=== PATIENT | female | born 1985 | race Caucasian/White ===

== ENCOUNTER 2018-01-10 17:25 | Emergency (ER) | payer OTHER | END 2018-01-10 19:22 | disposition left against medical advice (07) | LOC: UCCORT 17:25 | DX: R68.89 Other general symptoms and signs (principal); R05 Cough; Z53.21 Procedure and treatment not carried out due to patient leaving prior to being seen by health care provider ==

== ENCOUNTER 2018-01-12 18:17 | Emergency (ER) | payer SELFPAY ==
[2018-01-12 21:33] VITALS: BP 114/70
--- NOTE | 2018-01-12 21:45 | UC ---
Throat Pain/Nasal Michael HPI - HPI Summary HPI Summary: 32 y/o female presents to the urgent care c/o dry cough, nasal congestion w/ clear nasal discharge, sore throat, DELGADILLO and +PND for the past 5 days. Pt reports pain is 5/10 w/ swallowing. She has been taking Coricidin POand Robitsussin PO to alleviate cough w/ any improvement. Pt denies SOB, chest pain, abdominal pain, N/V/D - History of Current Complaint Chief Complaint: UCRespiratory Stated Complaint: COUGH Time Seen by Provider: 01/12/18 21:34 Hx Obtained From: Patient Hx Last Menstrual Period: 3 days ago ?: No Onset/Duration: Gradual Onset, Lasting Days - 5 days, Still Present, Worse Since - yesterday Severity: Moderate Pain Intensity: 7 Pain Scale Used: 0-10 Numeric Cough: Sputum Appears - clear Associated Signs & Symptoms: Positive: Dysphagia, Nasal Discharge - clear, Fever - subjective at home - Epiglottits Risk Factors Epiglottis Risk Factors: Negative - Allergies/Home Medications Allergies/Adverse Reactions: Allergies Allergy/AdvReac Type Severity Reaction Status Date / Time No Known Allergies Allergy Verified 05/29/16 18:25 Home Medications: Home Medications Bupropion XL* [Wellbutrin XL *] 300 mg PO DAILY 01/12/18 [History Confirmed ] Eucalyptus/Menthol [Cough Drops] 1 yoly MT SEE INSTRUCTIONS PRN 01/12/18 [ History Confirmed 01/12/18] FLUoxetine CAP* [Prozac CAP*] 10 mg PO DAILY 01/12/18 [History Confirmed ] GuaiFENesin DM* [Robitussin DM*] 10 ml PO Q6H PRN 01/12/18 [History Confirmed ] PMH/Surg Hx/FS Hx/Imm Hx Previously Healthy: Yes - Pt denies PMHX - Surgical History Surgical History: Yes Surgery Procedure, Year, and Place: X 3, tubal ligation - Family History Known Family History: Positive: Hypertension - Social History Occupation: Employed Full-time Lives: With Family Alcohol Use: None Substance Use Type: None Smoking Status (MU): Never Smoked Tobacco Have You Smoked in the Last Year: No Review of Systems Constitutional: Fever - subjective at home Skin: Negative Eyes: Negative ENT: Sore Throat, Nasal Discharge, Sinus Congestion Respiratory: Cough Cardiovascular: Negative Gastrointestinal: Negative Genitourinary: Negative Motor: Negative Neurovascular: Negative Musculoskeletal: Negative Neurological: Negative Psychological: Negative Is Patient Immunocompromised?: No All Other Systems Reviewed And Are Negative: Yes Physical Exam Triage Information Reviewed: Yes Vital Signs: Initial Vital Signs Temp 98 F 01/12/18 21:27 Pulse 89 01/12/18 21:27 Resp 20 01/12/18 21:27 BP 114/70 01/12/18 21:27 Pulse Ox 97 01/12/18 21:27 - Additional Comments VITAL SIGNS: Reviewed. GENERAL: Patient is a well developed and nourished female who is sitting comfortable in the examining table. Patient is not in any acute respiratory distress. HEAD AND FACE: No signs of trauma. No ecchymosis, hematomas or skull depressions. No sinus tenderness. edematous erythematous nasal mucosa with yellowish discharge, EYES: PERRLA, EOMI x 2, No injected conjunctiva, clear watery eyes, no nystagmus. No photophobia. EARS: Hearing grossly intact. Ear canals and tympanic membranes are within normal limits. MOUTH: Positive pharynx with erythema, no exudates,no palatal petechiae. no B/L tonsillar enlargement Uvula in midline. NECK: Supple, trachea is midline, Positive anterior cervical lymphadenopathy, no JVD, no carotid bruit, no c-spine tenderness, neck with full ROM. No meningeal signs, no Kernig's or brudzinskis signs. CHEST: Symmetric, no tenderness at palpation LUNGS: Clear to auscultation bilaterally. No wheezing or crackles. CVS: Regular rate and rhythm, S1 and S2 present, no murmurs or gallops appreciated. ABDOMEN: Soft, non-tender. No signs of distention. No rebound no guarding, and no masses palpated. Bowel sounds are normal. EXTREMITIES: FROM in all major joints, no edema, no cyanosis or clubbing. NEURO: Alert and oriented x 3. No acute neurological deficits. Speech is normal and follows commands. SKIN: Dry and warm Throat Pain/Nasal Course/Dx - Course Course Of Treatment: 32 y/o female presents to the urgent care c/o dry cough, nasal congestion w/ clear nasal discharge, sore throat, [place]O and +PND for the past 5 days. Pt reports pain is 5/10 w/ swallowing. She has been taking Coricidin POand Robitsussin PO to alleviate cough w/ any improvement. Pt denies SOB, chest pain, abdominal pain, N/V/D. Hx obtained. Pt w/ URI on examination.Rapid strep ordered, result: negative..Pt Rx ibuprofen PO to alleviates symptoms of pain and swelling, Tessalon tabs PO for cough. Pt Advised on hand washing to avoid spreading. Pt advised to rest, eat well and avoid strenuous exercise. If symptoms do not improve or worsen advised to return to the urgent care or f/u with her PCP for further evaluation and treatment. Pt understood and agreed w/ plan of care. - Differential Dx/Diagnosis Differential Diagnosis/HQI/PQRI: Influenza, Laryngitis, Mononucleosis, Pharyngitis, Sinusitis, Tonsillitis, URI Provider Diagnoses: 1- Upper respiratory infection. 2-Cough Discharge - Discharge Plan Condition: Stable Disposition: HOME Prescriptions: Benzonatate CAP* [Tessalon 100 MG CAP*] 100 mg PO TID PRN #21 cap PRN Reason: Cough Ibuprofen TAB* [Motrin TAB* 800 MG] 800 mg PO Q6H PRN #20 tab PRN Reason: Sore Throat Patient Education Materials: Upper Respiratory Infection (ED) Forms: *Work Release Referrals: Rahel Roberson MD [Primary Care Provider] - 3 Days Additional Instructions: 1-Please take ibuprofen PO q6-8hrs prn as instructed after meals to alleviate pain and swelling. Increase fluid intake, eat well, rest and avoid strenuous exercise 2-Take Tessalon tabs PO as directed to alleviate cough. 2-If symptoms do not improve or worsen please return to the urgent care or f/u with your PCP for further evaluation and treatment.
== END 2018-01-12 22:23 | disposition home or self-care (01) ==
LOC: UCCORT 18:17
DX: J06.9 Acute upper respiratory infection, unspecified (principal); R05 Cough
CPT/HCPCS: 87651; 99212; G0463

== ENCOUNTER 2019-03-20 15:10 | Emergency (ER) | payer OTHER ==
--- NOTE | 2019-03-20 15:20 | UC ---
Abdominal Pain Female HPI - HPI Summary HPI Summary: 33 yo female presents with vomiting and diarrhea since last night. She has not had anything to eat, but has been able to drink water. She tells me that her two sons had similar symptoms last week and she thinks she may have caught it. She has not pain. Denies fever, SOB, dysuria, or blood in emesis or stool. - History of Current Complaint Stated Complaint: ABDOMINAL PAIN, AND VOMITING Time Seen by Provider: 03/20/19 15:20 Hx Obtained From: Patient Hx Last Menstrual Period: 3 days ago Onset/Duration: Sudden Onset Severity Currently: None Allergies/Adverse Reactions: Allergies Allergy/AdvReac Type Severity Reaction Status Date / Time No Known Allergies Allergy Verified 03/20/19 15:23 Home Medications: Home Medications Topiramate [Topamax] 75 mg PO BID 03/20/19 [History Confirmed 03/20/19] PMH/Surg Hx/FS Hx/Imm Hx Psychological History: Anxiety, Depression - Surgical History Surgical History: Yes Surgery Procedure, Year, and Place: X 3, tubal ligation - Family History Known Family History: Positive: Hypertension - Social History Lives: With Family Alcohol Use: None Substance Use Type: None Smoking Status (MU): Never Smoked Tobacco Have You Smoked in the Last Year: No Review of Systems All Other Systems Reviewed And Are Negative: Yes Constitutional: Positive: Negative Skin: Positive: Negative Respiratory: Positive: Negative Cardiovascular: Positive: Negative Gastrointestinal: Positive: Vomiting, Nausea Genitourinary: Positive: Negative Neurovascular: Positive: Negative Neurological: Positive: Negative Psychological: Positive: Negative Physical Exam - Summary Physical Exam Summary: GENERAL: NAD. WDWN. No pain distress. SKIN: No rashes, sores, lesions, or open wounds. NECK: Supple. Nontender. No lymphadenopathy. CHEST: CTAB. No r/r/w. No accessory muscle use. Breathing comfortably and in no distress. CV: RRR. Without m/r/g. Pulses intact. Cap refill <2seconds ABDOMEN: Soft. NTTP. No distention or guarding. No CVA tenderness. Bowel sounds present NEURO: Alert. PSYCH: Age appropriate behavior. Triage Information Reviewed: Yes Vital Signs: Vital Signs: Temp Pulse Resp BP Pulse Ox 98.2 F 88 16 135/87 97 03/20/19 15:20 03/20/19 15:20 03/20/19 15:20 03/20/19 15:20 03/20/19 15:20 Laboratory Tests 03/20/19 15:37 POC Urine Color Dark yellow POC Urine Clarity Clear POC Urine pH 7.5 POC Ur Specif Kellogg 1.015 POC Urine Protein Trace A POC Ur Glucose (UA) Negative POC Urine Ketones Negative POC Urine Blood Trace-intact A POC Urine Nitrite Negative POC Urine Bilirubin Negative POC Urine Urobilinogen 1.0 POC U Leukocyte Esteras Negative Vital Signs Reviewed: Yes Abd Pain Female Course/Dx - Course Course Of Treatment: Suspect gastroenteritis. Rx for zofran and will provide her a note to be out of group treatment/therapy for today and tomorrow - Differential Dx/Diagnosis Provider Diagnosis: Gastroenteritis Discharge - Sign-Out/Discharge Documenting (check all that apply): Patient Departure All imaging exams completed and their final reports reviewed: No Studies - Discharge Plan Condition: Stable Disposition: HOME Prescriptions: Ondansetron ODT TAB* [Zofran 4 MG Odt TAB*] 4 mg PO Q8H PRN #12 tab.odt PRN Reason: Nausea Patient Education Materials: Gastroenteritis (DC) Forms: *Work Release Referrals: Rahel Roberson MD [Primary Care Provider] - Additional Instructions: If you develop a fever, shortness of breath, chest pain, new or worsening symptoms - please call your PCP or go to the ED. Your blood pressure was high at todays visit. Please see your primary provider within 4 weeks for recheck and re-evaluation. 1) Advance your diet as tolerated starting with a bland diet such as bananas, rice, applesauce, toast. - Billing Disposition and Condition Condition: STABLE Disposition: Home - Attestation Statements Provider Attestation: Per institutional requirements, I have reviewed the chart, however, I was not consulted specifically or made aware of this patient by the midlevel provider. I did not personally evaluate, interact with , or disposition this patient.
[2019-03-20 15:23] VITALS: BP 135/87
== END 2019-03-20 15:48 | disposition home or self-care (01) ==
LOC: UCEAST 15:10
DX: K52.9 Noninfective gastroenteritis and colitis, unspecified (principal); F41.9 Anxiety disorder, unspecified; F32.9 Major depressive disorder, single episode, unspecified
CPT/HCPCS: 81003; 99212; G0463

== ENCOUNTER 2020-02-23 15:09 | Emergency (ER) | payer OTHER ==
--- OUTSIDE RECORDS SUMMARY | 2020-02-23 15:18 | XMS REPORT | Continuity of Care Document ---
:1985 External Reference #:[id number] Author Name Rahel Roberson M.D. (transmitted by agent of provider Alva Raymond ) Address [address], [place] [address] Problems Active Problems Provider Date Backache Rahel Roberson M.D. Onset: 08/02/2012 Disorder of urinary tract Ronak uQan M.D. Onset: 11/14/2012 Social History Type Date Description Comments Sex Unknown Tobacco Use Start: Unknown Never Smoked Cigarettes ETOH Use Denies alcohol use Tobacco Use Start: Unknown Patient has never smoked Recreational Drug Use Former Drug User Cocaine, heroin. Rehab in 2016, 2018 Smoking Status Reviewed: 01/18/20 Patient has never smoked Allergies, Adverse Reactions, Alerts Description No Known Drug Allergies Medications Active Medications SIG Qnty Indications Ordering Provider Date Phentermine HCL 1 by mouth every 30caps R63.5 Rahel Roberson, 12/18/2019 30mg day M.D. Capsules Bupropion take one tablet 30tabs Rahel Robersno, 08/18/2019 Hydrochloride ER (XL) by mouth every M.D. morning 300mg Tablets ER 24HR Ibuprofen 1 by mouth three 90tabs Rahel Roberson, 600mg Tablets times a day as M.D. needed Topiramate take 1 and 1/2 90tabs Leslie Hernandez MD 50mg Tablets tablet by mouth two times daily History Medications Bupropion HCL ER (XL) take one tablet by 30tabs Leslie Hernandez MD 2018 - mouth every 08/18/2019 300mg Tablets ER 24HR morning Medications Administered in Office Medication SIG Qnty Indications Ordering Provider Date PPD Injection Nurse Visit A 02/11/2014 Immunizations CPT Code Status Date Vaccine Lot # [id number] Given 08/19/2014 Influenza Virus Vaccine, Quadrivalent, Split, [id number] Preservative Free [id number] Given 09/12/2012 Fluvirin Im 3Yrs And Older [id number] Given 09/12/2012 Influenza Virus 3Yrs & Over 08480 Given 12/02/2009 Influenza Virus Vaccine, Pandemic Formulation 92671 Given 12/02/2009 Influenza Virus Vaccine, Pandemic Formulation 10174 Given 12/02/2009 Influenza Virus Vaccine, Pandemic Formulation [id number] Given 12/02/2009 Administration Swine Flu Shot Vital Signs Date Vital Result Comment 01/18/2020 2:34pm Height 69 inches 5'9" Weight 245.00 lb Heart Rate 108 /min BP Systolic 146 mmHg BP Diastolic 88 mmHg BP Systolic Sitting 138 mmHg recheck BP Diastolic Sitting 89 mmHg recheck O2 % BldC Oximetry 100 % BMI (Body Mass Index) 36.2 kg/m2 12/18/2019 2:32pm Height 69 inches 5'9" Weight 251.00 lb Heart Rate 86 /min BP Systolic 133 mmHg BP Diastolic 88 mmHg O2 % BldC Oximetry 100 % BMI (Body Mass Index) 37.1 kg/m2 Results Test Acquired Date Facility Test Result H/L Range Note Laboratory test 08/22/2019 [facility] TSH 1.00 Normal 0.34- 5.[address] (Thyroid mcIU/[place] [address] Stim Horm) [phone] CBC Auto Diff 08/22/2019 [facility] White 6.6 10^3/uL Normal 3.5-10.[address] [place] [address] Count [phone] Red Blood Count 3.99 10^6/uL Normal 3.70-4.87 Hemoglobin 13.3 g/dL Normal 12.0-16.0 Hematocrit 38 % Normal 35-47 Mean Corpuscular Volume 96 fL Normal 80-97 Mean Corpuscular Hemoglobin 33 pg High 27-31 Mean Corpuscular HGB Conc 35 g/dL Normal 31-36 Red Cell Distribution Width 12 % Normal 10-15 Platelet Count 219 10^3/uL Normal 150-450 Mean Platelet Volume 10.7 fL High 7.4-10.4 Abs Neutrophils 4.6 10^3/uL Normal 1.5-7.7 Abs Lymphocytes 1.5 10^3/uL Normal 1.0-4.8 Abs Monocytes 0.4 10^3/uL Normal 0-0.8 Abs Eosinophils 0.1 10^3/uL Normal 0-0.6 Abs Basophils 0.0 10^3/uL Normal 0-0.2 Abs Nucleated RBC 0.0 10^3/uL Granulocyte % 68.7 % Lymphocyte % 23.2 % Monocyte % 5.6 % Eosinophil % 2.0 % Basophil % 0.5 % Nucleated Red Blood Cells % 0.0 Comp Metabolic 08/22/2019 [facility] Sodium 140 mmol/L Normal 135-[address] [place] [address] [phone] Potassium 4.0 mmol/L Normal 3.5-5.0 Chloride 110 mmol/L Normal 101-111 Co2 Carbon Dioxide 24 mmol/L Normal 22-32 Anion Gap 6 mmol/L Normal 2-11 Glucose 127 mg/dL High 70-100 Blood Urea Nitrogen 15 mg/dL Normal 6-24 Creatinine 0.89 mg/dL Normal 0.51-0.95 BUN/Creatinine Ratio 16.9 Normal 8-20 Calcium 9.1 mg/dL Normal 8.6-10.3 Total Protein 6.7 g/dL Normal 6.4-8.9 Albumin 4.3 g/dL Normal 3.2-5.2 Globulin 2.4 g/dL Normal 2-4 Albumin/Globulin Ratio 1.8 Normal 1-3 Total Bilirubin 0.50 mg/dL Normal 0.2-1.0 Alkaline Phosphatase 58 U/L Normal 34-104 Alt 28 U/L Normal 7-52 Ast 22 U/L Normal 13-39 Egfr Non- 73.5 >60 Egfr 88.9 >60 1 1 Because ethnic data is not always readily available, this report includes an eGFR for both -Americans and non- Americans. The National Kidney Disease Education Program (NKDEP) does not endorse the use of the MDRD equation for patients that are not between the ages of 18 and 70, are , have extremes of body size, muscle mass, or nutritional status, or are non- or non-. According to the National Kidney Foundation, irrespective of diagnosis, the stage of the disease is based on the level of kidney function: Stage Description GFR(mL/min/1.73 m(2)) 1 Kidney damage with normal or decreased GFR 90 2 Kidney damage with mild decrease in GFR 60-89 3 Moderate decrease in GFR 30-59 4 Severe decrease in GFR 15-29 5 Kidney failure <15 (or dialysis) Procedures Description No Information Available Medical Devices Description No Information Available Encounters Type Date Location Provider Dx Diagnosis Office Visit 12/18/2019 [facility] Rahel Roberson, R63.5 Abnormal weight 2:40p Medicine Jose Brooks M.D. gain Office Visit 10/19/2019 [facility] Rahel Roberson F32.89 Other specified 4:00p Medicine Jose Brooks M.D. depressive episodes Office Visit 08/17/2019 [facility] Rahel Roberson R63.4 Abnormal weight 1:20p Janice Brooks M.D. loss Assessments Date Code Description Provider 01/18/2020 F43.20 Adjustment disorder, unspecified Rahel Roberson M.D. 01/18/2020 R63.5 Abnormal weight gain Rahel Roberson M.D. 12/18/2019 R63.5 Abnormal weight gain Rahel Roberson M.D. 10/19/2019 F32.89 Other specified depressive episodes Rahel Roberson M.D. 08/17/2019 R63.4 Abnormal weight loss Rahel Roberson M.D. Plan of Treatment Future Appointment(s):02/18/2020 2:40 pm - Rahel Roberson M.D. at [facility]01/18/2020 - Rahel Roberson M.D.F43.20 Adjustment disorder, unspecifiedComments:I strongly recommend that you establish with a counselorConsider Faculty and Staff Assistance program [facility] for a place to walk, [place]? [employer]? [employer]?Follow up:1 [email or web address] Abnormal weight gainComments:Stay on the phentermine Functional Status Description No Information Available Mental Status Description No Information Available Referrals Description No Information Available
[2020-02-23 15:36] VITALS: BP 151/93
--- NOTE | 2020-02-23 15:40 | UC ---
Throat Pain/Nasal Michael HPI - HPI Summary HPI Summary: Patient is a 34yo female presenting with nasal congestion worse on left side x1 week. Patient notes radiating pain to left ear and throat. Notes nasal discharge and sinus pressure as well. States she "feels like something is stuck in her nose." Denies placing any objects in the nose. Denies epistaxis. Denies cough. Denies fever and chills. Denies body aches. Denies taking anything for symptom relief. Denies environmental allergies - History of Current Complaint Chief Complaint: UCRespiratory Stated Complaint: EAR, THROAT, SINUS ISSUES Hx Obtained From: Patient Hx Last Menstrual Period: 02/21/20 Pain Intensity: 7 Pain Scale Used: 0-10 Numeric - Allergies/Home Medications Allergies/Adverse Reactions: Allergies Allergy/AdvReac Type Severity Reaction Status Date / Time No Known Allergies Allergy Verified 02/23/20 15:24 Home Medications: Home Medications Acetaminophen [Mapap] 1,000 mg PO ONCE PRN 02/23/20 [History Confirmed 02/23/20] Amoxicillin/Clavulanate TAB* [Augmentin TAB 875*] 875 mg PO BID #14 tab [Rx] PMH/Surg Hx/FS Hx/Imm Hx Previously Healthy: Yes - Surgical History Surgical History: Yes Surgery Procedure, Year, and Place: X 3, tubal ligation - Family History Known Family History: Positive: Hypertension, Non-Contributory - Social History Alcohol Use: None Substance Use Type: None Smoking Status (MU): Light Every Day Tobacco Smoker Amount Used/How Often: 7 cig/day Have You Smoked in the Last Year: No Household Exposure Type: Cigarettes Review of Systems All Other Systems Reviewed And Are Negative: Yes Constitutional: Positive: Negative ENT: Positive: Ear Ache - left, Nasal Discharge, Sinus Congestion, Sinus Pain/ Tenderness Respiratory: Positive: Negative Cardiovascular: Positive: Negative Gastrointestinal: Positive: Negative Musculoskeletal: Positive: Negative Neurological/Mental Status: Positive: Headache Physical Exam - Summary Physical Exam Summary: Vital Signs Reviewed: Yes A+Ox3, no distress, well-appearing Eyes: Conjunctiva Clear ENT: Hearing grossly normal, TM x 2 clear, moist, uvula midline, no exudate, no erythema, +nasal congestion, +mildly edematous nasal mucosa b/l, dry/cracked cartilage of left lateral nare Neck: Positive: Supple Respiratory: Positive: No respiratory distress, No accessory muscle use + CTA throughout no w/r Cardiovascular: RRR nl s1, s2 no m/r Musculoskeletal Exam: CHEATHAM x 4 without difficulty Neurological: Positive: Alert Psychological: Positive: age appropriate behavior Skin: Positive: no rash, no ecchymosis Vital Signs: Initial Vital Signs Temp 96.7 F 02/23/20 15:35 Pulse 98 02/23/20 15:35 Resp 20 02/23/20 15:35 BP 151/93 02/23/20 15:35 Pulse Ox 98 02/23/20 15:35 Throat Pain/Nasal Course/Dx - Course Course Of Treatment: I discussed viral vs bacterial etiology of sinusitis with patient. Patient prefers to take antibiotic at this time. I prescribed augmentin for possible bacterial infection and instructed to keep the mucosa moist with saline and vaseline. Instructed to follow up with pcp for any new/worsening symptoms. Patient voiced understanding and agreed with treatment plan. - Differential Dx/Diagnosis Differential Diagnosis/HQI/PQRI: Sinusitis, URI Provider Diagnosis: Sinusitis Discharge ED - Sign-Out/Discharge Documenting (check all that apply): Patient Departure All imaging exams completed and their final reports reviewed: No Studies - Discharge Plan Condition: Stable Disposition: HOME Prescriptions: Amoxicillin/Clavulanate TAB* [Augmentin TAB 875*] 875 mg PO BID #14 tab Patient Education Materials: Sinusitis (ED) Referrals: Rahel Roberson MD [Primary Care Provider] - Additional Instructions: As discussed, take Augmentin for treatment of your sinusitis. You may also use nasal saline spray for symptomatic relief. Apply a small amount of vaseline inside the nose to keep moist. You may continue with ibuprofen as directed for pain relief. Follow up with your primary care provider if symptoms do not resolve. - Billing Disposition and Condition Condition: STABLE Disposition: Home
== END 2020-02-23 16:19 | disposition home or self-care (01) ==
LOC: UCEAST 15:09
DX: J32.9 Chronic sinusitis, unspecified (principal); F17.210 Nicotine dependence, cigarettes, uncomplicated
CPT/HCPCS: 99212; G0463

== ENCOUNTER → 2020-03-13 12:45 | Emergency (ER) | payer OTHER ==
--- OUTSIDE RECORDS SUMMARY | 2020-03-13 13:13 | XMS REPORT | Continuity of Care Document ---
:1985 External Reference #:[id number] Author Name Rahel Roberson M.D. (transmitted by agent of provider Guerline Benjamin) Address [address], [place] [address] Problems Active Problems Provider Date Backache Rahel Roberson M.D. Onset: 08/02/2012 Disorder of urinary tract Ronak Quan M.D. Onset: 11/14/2012 Social History Type Date Description Comments Sex Unknown Tobacco Use Start: Unknown Never Smoked Cigarettes ETOH Use Denies alcohol use Tobacco Use Start: Unknown Patient has never smoked Recreational Drug Use Former Drug User Cocaine, heroin. Rehab in 2016, 2017 Smoking Status Reviewed: 01/18/20 Patient has never smoked Allergies, Adverse Reactions, Alerts Description No Known Drug Allergies Medications Active Medications SIG Qnty Indications Ordering Provider Date Trazodone HCL take 1-2 tablets 30tabs Rahel Roberson, 03/07/2020 50mg by mouth once M.D. Tablets daily at bedtime as needed for sleep Omeprazole 1 by mouth every 30caps R12 Rahel Roberson, 03/04/2020 40mg Capsules day before M.D. DR sousa Bupropion take one tablet 30tabs Rahel Roberson, 08/18/2019 Hydrochloride ER (XL) by mouth every M.D. morning 300mg Tablets ER 24HR Ibuprofen 1 by mouth three 90tabs Rahel Roberson, 600mg Tablets times a day as M.D. needed Topiramate take 1 and 1/2 90tabs Leslie Hernandez MD 50mg Tablets tablet by mouth two times daily History Medications Phentermine HCL 1 by mouth 30caps R63.5 Rahel Roberson, 12/18/2019 - 30mg every day M.D. 03/04/2020 Capsules Medications Administered in Office Medication SIG Qnty Indications Ordering Provider Date PPD Injection Nurse Visit A 02/11/2014 Immunizations CPT Code Status Date Vaccine Lot # [id number] Given 08/19/2014 Influenza Virus Vaccine, Quadrivalent, Split, [id number] Preservative Free [id number] Given 09/12/2012 Fluvirin Im 3Yrs And Older [id number] 14821 Given 09/12/2012 Influenza Virus 3Yrs & Over 35637 Given 12/02/2009 Influenza Virus Vaccine, Pandemic Formulation 71867 Given 12/02/2009 Influenza Virus Vaccine, Pandemic Formulation 67768 Given 12/02/2009 Influenza Virus Vaccine, Pandemic Formulation [id number] 80348 Given 12/02/2009 Administration Swine Flu Shot Vital [...] BMI (Body Mass Index) 37.1 kg/m2 Results Description No Information Available Procedures Description No Information Available Medical Devices Description No Information Available Encounters Type Date Location Provider Dx Diagnosis Office Visit 03/04/2020 [facility] Rahel Roberson, F41.9 Anxiety disorder, 1:20p Medicine - Cecilia Fabian unspecified R12 Heartburn Office Visit 01/18/2020 2:20p [facility] Rahel F43.20 Adjustment Janice Roberson M.D. disorder, Zackaryob unspecified R63.5 Abnormal weight gain Office Visit 12/18/2019 2:40p [facility] Rahel R63.5 Abnormal weight Janice Roberson M.D. gain Ccmob Office Visit 10/19/2019 4:00p [facility] Ra[facility] F32.89 Other specified Janice Roberson M.D. depressive Ccmob episodes Assessments Date Code Description Provider 03/04/2020 F41.9 Anxiety disorder, unspecified Rahel Roberson M.D. 03/04/2020 R12 Heartburn Rahel Roberson M.D. 01/18/2020 F43.20 Adjustment disorder, unspecified Rahel Roberson M.D. 01/18/2020 R63.5 Abnormal weight gain Rahel Roberson M.D. 12/18/2019 R63.5 Abnormal weight gain Rahel Roberson M.D. 10/19/2019 F32.89 Other specified depressive episodes Rahel Roberson M.D. Plan of Treatment 03/04/2020 - Rahel Roberson M.D.F41.9 Anxiety disorder, unspecifiedComments: Stop phentermineStay off caffeineI will contact [facility] to see if I can expedite your appointment I will call you tomorrow about [id number] HeartburnNew Medication:Omeprazole 40 mg - 1 by mouth every day before dinnerComments:Start on omeprazole Functional Status Description No Information Available Mental Status Description No Information Available Referrals Description No Information Available
--- OUTSIDE RECORDS SUMMARY | 2020-03-13 13:13 | XMS REPORT | Continuity of Care Document ---
:1985 External Reference #:[id number] Author Name Rahel Roberson M.D. Address [address], [place] [address] Problems Active Problems Provider Date Backache Rahel [...] Medications SIG Qnty Indications Ordering Provider Date Omeprazole 1 by mouth every 30caps R12 Rahel Roberson, 03/04/2020 40mg Capsules day before M.D. DR sousa Phentermine HCL 1 by mouth every 30caps R63.5 Rahel Roberson, 12/18/2019 30mg day M.D. Capsules Bupropion take one tablet 30tabs Rahel Roberson, 08/18/2019 Hydrochloride ER (XL) by mouth every M.D. morning 300mg Tablets ER 24HR Ibuprofen 1 by mouth three 90tabs Rahel Roberson, 600mg Tablets times a day as M.D. needed Topiramate take 1 and 1/2 90tabs Leslie Hernandez MD 50mg Tablets tablet by mouth two times daily Medications Administered in Office Medication SIG Qnty Indications Ordering Provider Date PPD Injection Nurse Visit A 02/11/2014 Immunizations CPT Code Status Date Vaccine Lot # [id number] Given 08/19/2014 Influenza Virus Vaccine, Quadrivalent, Split, [id number] Preservative Free Q2037 Given 09/12/2012 Fluvirin Im 3Yrs And Older [id number] 44287 Given 09/12/2012 Influenza Virus 3Yrs & Over 22369 Given 12/02/2009 Influenza Virus Vaccine, Pandemic Formulation 43274 Given 12/02/2009 Influenza Virus Vaccine, Pandemic Formulation 58742 Given 12/02/2009 Influenza Virus Vaccine, Pandemic Formulation [id number] 56783 Given 12/02/2009 Administration Swine Flu Shot Vital [...] Date Location Provider Dx Diagnosis Office Visit 01/18/2020 [facility] Rahel Roberson, F43.20 Adjustment 2:20p Medicine - Cecilia Fabian disorder, unspecified R63.5 Abnormal weight gain Office Visit 12/18/2019 2:40p [facility] Rahel R63.5 Abnormal weight Janice Roberson M.D. gain Ccmob Office Visit 10/19/2019 4:00p [facility] Internal Rahel F32.89 Other specified Janice Roberson [...] unspecifiedComments: Stop phentermineStay off caffeineI will contact [facility] to see if I can expedite your appointment I will call you tomorrow about [id number] HeartburnNew Medication:Omeprazole 40 mg - 1 by mouth every day before dinnerComments:Start on omeprazole Functional Status Description No Information Available Mental Status Description No Information Available Referrals Description No Information Available
== END | disposition left against medical advice (07) ==
LOC: ED 12:45
DX: Z00.8 Encounter for other general examination (principal); Z53.21 Procedure and treatment not carried out due to patient leaving prior to being seen by health care provider

== ENCOUNTER 2020-04-10 22:31 | Inpatient (IN) ==
[2020-04-10 23:18] LABS: ABS Basophils 0.1 10^3/ul (0-0.2); ABS Eosinophils 0.3 10^3/ul (0-0.6); ABS Lymphocytes 2.8 10^3/ul (1.0-4.8); ABS Monocytes 0.8 10^3/ul (0-0.8); Eosinophil % 2.7 %; Hematocrit 39 % (35-47); Hemoglobin 13.6 g/dL (12.0-16.0); Lymphocyte % 27.1 %; Mean Corpuscular HGB Conc 35 g/dL (31-36); Mean Corpuscular Hemoglobin 33 pg (27-31); Mean Corpuscular Volume 94 fL (80-97); Mean Platelet Volume 9.6 fL (7.4-10.4); Platelet Count 269 10^3/uL (150-450); Red Blood Count 4.11 10^6 /uL (3.70-4.87); Red Cell Distribution Width 13 % (10-15); White Blood Count 10.1 10^3/uL (3.5-10.8)
[2020-04-10 23:34] LABS: ALT 14 U/L (7-52); AST 19 U/L (13-39); Albumin 4.5 g/dL (3.2-5.2); Albumin/Globulin Ratio 1.6 (1-3); Alkaline Phosphatase 54 U/L (34-104); Anion Gap 10 mmol/L (2-11); Blood Urea Nitrogen 9 mg/dL (6-24); CO2 Carbon Dioxide 28 mmol/L (22-32); Calcium 9.5 mg/dL (8.6-10.3); Chloride 99 mmol/L (101-111); EGFR African American 108.4 (>60); EGFR Non-African American 89.6 (>60); Globulin 2.9 g/dL (2-4); Glucose 110 mg/dL (70-100); Potassium 3.5 mmol/L (3.5-5.0); Sodium 137 mmol/L (135-145); Total Protein 7.4 g/dL (6.4-8.9)
[2020-04-10 23:40] LABS: Acetaminophen < 15 mcg/mL; Alcohol, S < 10 mg/dL (<10); Salicylate < 2.50 mg/dL (<30)
[2020-04-10 23:41] LABS: HCG Pregnancy < 0.60 mIU/mL
[2020-04-10 23:45] LABS: Urine Appearance Cloudy; Urine Bilirubin Negative (Negative); Urine Blood Negative (Negative); Urine Color Yellow; Urine Glucose Negative (Negative); Urine Ketones Negative (Negative); Urine Nitrite Negative (Negative); Urine Protein Negative (Negative); Urine Urobilinogen Negative (Negative)
[2020-04-10 23:48] LABS: Urine Bacteria 1+ (Absent); Urine Red Blood Cell Absent (Absent); Urine Squamous Epithelial Cell Present (Absent); Urine White Blood Cell 1+(6-10/hpf) (Absent)
[2020-04-10 23:55] LABS: TSH (Thyroid Stimulating Horm) 1.57 mcIU/mL (0.34-5.60)
[2020-04-11 00:20] LABS: Urine Benzodiazepine Screen None Detected (None Detect); Urine Opiates Screen None Detected (None Detect)
[2020-04-11] MEDS ORDERED: Al Hydrox/Mg Hydrox/Simet LIQ 30 ML UDC PO PRN (03:28)
[2020-04-11] MEDS: Vitamin THERAPEUTIC TAB PO SCH (11:24)
[2020-04-11] MEDS: Nicotine PATCH 21 MG/24 HR PATCH TRANSDERM SCH (13:49)
[2020-04-12] MEDS: Vitamin THERAPEUTIC TAB PO SCH (09:42)
[2020-04-12] MEDS: Nicotine PATCH 21 MG/24 HR PATCH TRANSDERM SCH (09:42)
[2020-04-12] MEDS: Nicotine GUM 4MG FRUIT FLAVOR PO PRN ×3 (12:31→18:46)
[2020-04-13] MEDS: Nicotine PATCH 21 MG/24 HR PATCH TRANSDERM SCH (08:22)
[2020-04-13] MEDS: Vitamin THERAPEUTIC TAB PO SCH (08:22)
[2020-04-13] MEDS: Nicotine GUM 4MG FRUIT FLAVOR PO PRN ×5 (08:22→19:53)
[2020-04-14] MEDS: Vitamin THERAPEUTIC TAB PO SCH (08:52)
[2020-04-14] MEDS: Nicotine GUM 4MG FRUIT FLAVOR PO PRN ×3 (08:52→17:45)
[2020-04-14] MEDS: Nicotine PATCH 21 MG/24 HR PATCH TRANSDERM SCH (11:45)
[2020-04-15 08:09] LABS: HDL Cholesterol 56.6 mg/dL
[2020-04-15] MEDS: Nicotine GUM 4MG FRUIT FLAVOR PO PRN ×3 (08:32→15:07)
[2020-04-15] MEDS: Vitamin THERAPEUTIC TAB PO SCH (08:33)
[2020-04-15] MEDS: Nicotine PATCH 21 MG/24 HR PATCH TRANSDERM SCH (09:17)
[2020-04-15 09:55] VITALS: BP 123/72
== END 2020-04-15 13:40 | disposition home or self-care (01) | DRG 776 ==
LOC: ED 22:31 → BSU 04-11 05:20
PROVIDERS: ADMIT Psychiatry & Neurology Psychiatry; ATTEND Psychiatry & Neurology Psychiatry